=== PATIENT | female | born 1940 ===

== ENCOUNTER 2018-04-20 17:50 | Inpatient (IN) | payer OTHER, BC ==
--- NOTE | 2018-04-20 18:07 | EDPHY ---
H & P Stated Complaint: SOB/pneumonia Time Seen by Provider: 04/20/18 18:06 HPI/ROS: HPI CHIEF COMPLAINT: Worsening shortness of breath, cough HISTORY OF PRESENT ILLNESS: This is a 77-year-old female, she has a history of COPD however not on oxygen requirement, visiting her sister from out of town, last Monday she became ill and was diagnosed with the flu at urgent care, she subsequent back to urgent care today for increasing shortness of breath last night. Increasing cough. And feeling unwell. She had a chest x-ray there was diagnosed with pneumonia and then subsequently referred to the emergency room for further evaluation. She denies any chest pain, denies pleuritic pain, denies hemoptysis. Denies productive cough but does have a wet sounding cough on exam. Past Medical History: COPD not on oxygen, thyroid disease Past Surgical History: No recent surgery Social History: Lives in [place] visiting her sister here. Denies drugs alcohol tobacco. Family History: Noncontributory ROS REVIEW OF SYSTEMS: 10 Systems were reviewed and negative with the exception of the elements mentioned in the history of present illness. Exam Constitutional triage nursing summary reviewed, vital signs reviewed, awake/ alert. Nontoxic, not overtly hypoxic Eyes normal conjunctivae and sclera, EOMI, PERRLA. HENT normal inspection, atraumatic, moist mucus membranes, no epistaxis, neck supple/ no meningismus, no raccoon eyes. Respiratory bronchitic sounding cough on exam. Cardiovascular rate normal, regular rhythm, no murmur, no edema, distal pulses normal. Gastrointestinal soft, non-tender, no rebound, no guarding, normal bowel sounds, no distension, no pulsatile mass. Genitourinary no CVA tenderness. Musculoskeletal no midline vertebral tenderness, full range of motion, no calf swelling, no tenderness of extremities, no meningismus, good pulses, neurovascularly intact. Skin pink, warm, & dry, no rash, skin atraumatic. Neurologic awake, alert and oriented x 3, AAOx3, moves all 4 extremities equally, motor intact, sensory intact, CN II-XII intact, normal cerebellar, normal vision, normal speech. Psychiatric normal mood/affect. Heme/Lymph/Immune no lymphadenopathy. Differential Diagnosis: Includes but is not limited to in a particular order viral syndrome, URI, influenza, influenza subsequently complicated by bacterial pneumonia Medical Decision Making: Plan for this patient IV establishment IV fluid bolus , blood cultures, lactic acid, supplemental oxygen, EKG, hospital admission. Re-evaluation: Outside x-ray reviewed by our urgent care this shows a left lower lobe infiltrate. Patient is pending lactic acid and blood cultures. IV Rocephin and azithromycin ordered. Plan for hospital admission. I recommend hospital admission for pneumonia and recent influenza and underlying lung disease COPD. Patient agrees for admission and would prefer this as she feels unwell. Consult the hospitalist service Dr. Juarez who agrees to admit. EKG interpretation by me on record in [employer] system. Impression time of EKG 1858, sinus tach 100, bigeminy present. Source: Patient - Personal History Current Tetanus/Diphtheria Vaccine: Unsure - Medical/Surgical History Hx Asthma: No Hx Chronic Respiratory Disease: No Hx Diabetes: No Hx Cardiac Disease: No Hx Renal Disease: No Hx Cirrhosis: No Hx Alcoholism: No Other PMH: Br CA 1993, COPD, - Social History Smoking Status: Former smoker Constitutional: Initial Vital Signs Temperature (C) 36.9 C 04/20/18 17:57 Heart Rate 82 04/20/18 17:57 Respiratory Rate 18 04/20/18 17:57 Blood Pressure 126/71 H 04/20/18 17:57 O2 Sat (%) 92 04/20/18 17:57 O2 Delivery Mode Room Air O2 (L/minute) 2 Allergies/Adverse Reactions: No Known Allergies Allergy (Verified 04/20/18 18:49) Home Medications: Medication Instructions Recorded Fluticasone/Salmeter 500/50Mcg 1 puffs IH BID 04/20/18 [Advair 500/50 (*)] Gabapentin [Neurontin 100 MG (*)] 200 mg PO TID 04/20/18 Levothyroxine [Synthroid 150 mcg 150 mcg PO DAILY06 04/20/18 (*)] Lipase/Protease/Amylase [Chelsey Gaspar 1 each PO TIDMEAL 04/20/18 36,000 Units Capsule] Meloxicam 15 mg PO DAILY PRN 04/20/18 Vortioxetine Hydrobromide 10 mg PO DAILY 04/20/18 [Brintellix] Zolpidem Tartrate [Ambien 5MG (*)] 5 mg PO HS 04/20/18 Fortivo Xl 450 mg PO DAILY 04/21/18 Medical Decision Making - Data Points Laboratory Results: Laboratory Results 04/20/18 18:30 04/20/18 18:30 Microbiology Results: MICROBIOLOGY 04/20/18 18:50 Blood Blood Culture - Preliminary 04/20/18 18:30 Blood Blood Culture - Preliminary Medications Given: Acetaminophen (Tylenol) 650 mg PO Q4HRS PRN PRN Reason: Pain, Mild/Fever, Can Take PO Stop: 10/17/18 18:39 Last Admin: 04/21/18 13:52 Dose: 650 mg Hydrocodone Bitart/Acetaminophen ([place] 5/325) 1 - 2 tab PO Q4HRS PRN PRN Reason: Pain, Moderate Able to Take PO Stop: 04/30/18 18:39 Last Admin: 04/21/18 08:34 Dose: 1 tab Albuterol/Ipratropium (Duoneb) 3 ml IH QID [facility] Stop: 10/17/18 20:59 Last Admin: 04/22/18 11:57 Dose: 3 ml Enoxaparin Sodium (Lovenox) 40 mg SC DAILY [facility] Stop: 10/18/18 10:44 Last Admin: 04/22/18 09:07 Dose: 40 mg Gabapentin (Neurontin) 200 mg PO TID [facility] Stop: 10/17/18 21:59 Last Admin: 04/22/18 09:07 Dose: 200 mg Guaifenesin (Mucinex) 1,200 mg PO BID [facility] Stop: 10/18/18 10:29 Last Admin: 04/22/18 09:06 Dose: 1,200 mg Azithromycin 500 mg/ Sodium (Chloride) 255 mls @ 255 mls/hr IV DAILY [facility] PRN Reason: Protocol Stop: 05/21/18 20:29 Last Admin: 04/22/18 10:21 Dose: 255 mls Ceftriaxone Sodium/Dextrose (Rocephin 1 Gm (Premix)) 50 mls @ 100 mls/hr IV DAILY [facility] PRN Reason: Protocol Stop: 05/21/18 20:29 Last Admin: 04/22/18 09:07 Dose: 50 mls Ibuprofen (Motrin) 600 mg PO Q8H PRN PRN Reason: Pain, Mild Stop: 10/18/18 10:27 Last Admin: 04/21/18 10:56 Dose: 600 mg Levothyroxine Sodium (Synthroid) [facility] Stop: 10/18/18 05:59 Last Admin: 04/22/18 05:51 Dose: 150 mcg Miscellaneous Medication (Non-Formulary) 1 ea PO TIDMEAL [facility] Stop: 10/18/18 07:59 Last Admin: 04/22/18 09:10 Dose: 1 tab Miscellaneous Medication (Vortioxetine Hydrobromide [Trintellix]) 10 mg PO DAILY [facility] Stop: 10/18/18 08:59 Last Admin: 04/22/18 09:09 Dose: 10 mg Miscellaneous Medication (Fortivo Xl) 450 mg PO DAILY [facility] Stop: 10/19/18 08:59 Last Admin: 04/22/18 09:08 Dose: 450 mg Ondansetron HCl (Zofran Odt) 4 mg PO Q4HRS PRN PRN Reason: Nausea/Vomiting, Use 1st Stop: 10/17/18 18:39 Last Admin: 04/22/18 10:39 Dose: 4 mg Fluticasone/Salmeterol (Advair) 1 puffs IH BID [facility] Stop: 10/17/18 20:59 Last Admin: 04/22/18 09:09 Dose: 1 puffs Senna/Docusate Sodium (Senokot-S) 1 - 2 tab PO BID [facility] PRN Reason: Protocol Stop: 10/17/18 20:59 Last Admin: 04/22/18 09:09 Dose: Not Given Zolpidem Tartrate (Ambien) 5 mg PO HS [facility] Stop: 10/17/18 20:59 Last Admin: 04/21/18 22:52 Dose: 5 mg Discontinued Medications Bupropion HCl (Wellbutrin Xl) 450 mg PO DAILY [facility] Stop: 10/18/18 08:59 Last Admin: 04/21/18 08:21 Dose: 450 mg Sodium Chloride (Ns) 1,000 mls @ 0 mls/hr IV EDNOW ONE; Wide Open PRN Reason: Protocol Stop: 04/20/18 18:12 Last Admin: 04/20/18 18:50 Dose: 1,000 mls Azithromycin 500 mg/ Sodium (Chloride) 255 mls @ 255 mls/hr IV EDNOW ONE PRN Reason: Protocol Stop: 04/20/18 19:24 Last Admin: 04/20/18 19:25 Dose: 255 mls Ceftriaxone Sodium 2 gm/ (Sodium Chloride) 50 mls @ 100 mls/hr IV EDNOW ONE PRN Reason: Protocol Stop: 04/20/18 18:54 Last Admin: 04/20/18 19:01 Dose: 50 mls Sodium Chloride (Ns) 1,000 mls @ 0 mls/hr IV ONCE ONE PRN Reason: Wide Open Stop: 04/20/18 23:51 Last Admin: 04/21/18 00:13 Dose: 1,000 mls Oseltamivir Phosphate (Tamiflu) 75 mg PO ONCE ONE Stop: 04/21/18 10:24 Last Admin: 04/21/18 10:51 Dose: 75 mg Point of Care Test Results: Chemistry 04/20/18 18:39 POC Troponin I 0.00 ng/mL ng/mL (0.00-0.08) Departure - Departure Disposition: [facility] Inpatient Acute Clinical Impression: Pneumonia Qualifiers: Pneumonia type: due to unspecified organism Laterality: left Lung location: lower lobe of lung Qualified Code(s): J18.1 - Lobar pneumonia, unspecified organism Condition: Fair
[2018-04-20] MEDS ORDERED: NS 1,000 ML IV ONE ×2 (18:11→23:50)
[2018-04-20] MEDS ORDERED: AZITHROMYCIN IV 500 MG in NS 250 ML IV ONE (18:25)
[2018-04-20] MEDS ORDERED: ALBUTEROL 3 ML DEYVIAL IH PRN (18:40)
[2018-04-20] MEDS ORDERED: oxyCODONE IR 5 MG TAB PO PRN (18:40)
[2018-04-20] MEDS ORDERED: ONDANSETRON 4 MG/2 ML VIAL IVP PRN (18:40)
[2018-04-20] MEDS ORDERED: HYDROmorphONE/DILAUDID 1 MG/ML INJ IVP PRN (18:40)
[2018-04-20] MEDS ORDERED: PROMETHAZINE HCL 25 MG/ML INJ IVP PRN (18:40)
[2018-04-20 18:46] LABS: PLATELET COUNT 331 10^3/uL (150-400)
[2018-04-20 19:07] LABS: INR 1.17 (0.83-1.16); PROTIME(PATIENT) 15.1 SEC (12.0-15.0)
[2018-04-20] MEDS ORDERED: POLYETHYLENE GLYCOL 3350 17 GM PKT PO PRN (20:43)
[2018-04-20] MEDS ORDERED: MAGNESIUM HYDROXIDE 30 ML UDCUP PO PRN (20:43)
[2018-04-20] MEDS ORDERED: BISACODYL 10 MG SUPP PR PRN (20:43)
[2018-04-20] MEDS ORDERED: LACTULOSE 20 GM/30 ML UDCUP PO PRN (20:43)
--- NOTE | 2018-04-20 20:50 | PDGENHP ---
History and Physical - Chief Complaint shorntess of breath - History of Present Illness 77 yo F with PMH of COPD, breast cancer and hx of partial lobectomy for radiation associated changes of the lung presenting with sob, cough and generalized malaise. Patient is currently visiting her sister in [place] from [place], has been here approximately one week. Shortly after arrival she began feeling ill with fever, chills and cough and was diagnosed with influenza at urgent care. She reportedly was initially getting better from that but last night developed severe shortness of breath to where she felt she was suffocating. She has had associated cough that is non productive as well as chills and malaise but no fevers. She returned to urgent care where she was found to have a left lower lobe infiltrate consistent with pneumonia and was sent to ER for further evaluation. At the time of my evaluation patient feels much better on supplemental o2, she has no pain, she has mild dry cough and no other acute complaints. History Information - Allergies/Home Medication List Allergies/Adverse Reactions: No Known Allergies Allergy (Verified 04/20/18 18:49) Home Medications: Bupropion HCl [Forfivo Xl] 450 mg PO DAILY 04/20/18 [Last Taken 04/20/18] Fluticasone/Salmeter 500/50Mcg [Advair 500/50 (*)] 1 puffs IH BID 04/20/18 [ Last Taken 04/20/18] Gabapentin [Neurontin 100 MG (*)] 200 mg PO TID 04/20/18 [Last Taken 04/19/18] Levothyroxine [Synthroid 150 mcg (*)] 150 mcg PO DAILY06 04/20/18 [Last Taken ] Lipase/Protease/Amylase [Chelsey Gaspar 36,000 Units Capsule] 1 each PO TIDMEAL [Last Taken Unknown] Meloxicam 15 mg PO DAILY PRN 04/20/18 [Last Taken 04/19/18] Vortioxetine Hydrobromide [Brintellix] 10 mg PO DAILY 04/20/18 [Last Taken 04/20] Zolpidem Tartrate [Ambien 5MG (*)] 5 mg PO HS 04/20/18 [Last Taken 04/19/18] I have personally reviewed and updated: family history, medical history, social history, surgical history - Past Medical History cancer (breast), COPD, psychiatric history (depression) Additional medical history: hypothyroid - Surgical History Reports: cancer surgery Additional surgical history: RUL lobectomy for what turned out to be radiation changes from breast cancer treatment - Family History Positive for: non-pertinent - Social History Smoking Status: Former smoker Alcohol Use: Occasionally Drug Use: None Additional social history: resides in [place], visiting her sister Review of Systems Review of Systems: ROS: 10pt was reviewed & negative except for what was stated in HPI & below Physical Exam Physical Exam: Temp Pulse Resp BP Pulse Ox 37.0 C 71 18 120/50 L 97 04/20/18 20:00 04/20/18 20:00 04/20/18 20:00 04/20/18 20:00 04/20/18 20:10 O2 (L/minute) 1 Constitutional: no apparent distress, appears nourished Eyes: PERRL, anicteric sclera Ears, Nose, Mouth, Throat: moist mucous membranes, hearing normal Cardiovascular: regular rate and rhythym, no murmur, rub, or gallop, No edema Respiratory: no respiratory distress, rhonchi (LLL) Gastrointestinal: normoactive bowel sounds, soft, non-tender abdomen Genitourinary: no bladder tenderness Skin: warm, normal color Musculoskeletal: full muscle strength Neurologic: AAOx3 Psychiatric: interacting appropriately, not anxious, not encephalopathic Lab Data & Imaging Review 04/20/18 18:30 04/20/18 18:30 WBC 8.72 10^3/uL (3.80-9.50) 04/20/18 18:30 RBC 4.21 10^6/uL (4.18-5.33) 04/20/18 18:30 Hgb 13.0 g/dL (12.6-16.3) 04/20/18 18:30 Hct 39.4 % (38.0-47.0) 04/20/18 18:30 MCV 93.6 fL (81.5-99.8) 04/20/18 18:30 MCH 30.9 pg (27.9-34.1) 04/20/18 18:30 MCHC 33.0 g/dL (32.4-36.7) 04/20/18 18:30 RDW 14.6 % (11.5-15.2) 04/20/18 18:30 Plt Count 331 10^3/uL (150-400) 04/20/18 18: MPV 8.6 fL (8.7-11.7) L 04/20/18 18:30 Neut % (Auto) 70.5 % (39.3-74.2) 04/20/18 18:30 Lymph % (Auto) 16.2 % (15.0-45.0) 04/20/18 18: [place] % (Auto) 9.5 % (4.5-13.0) 04/20/18 18:30 Eos % (Auto) 2.3 % (0.6-7.6) 04/20/18: Baso % (Auto) 0.5 % (0.3-1.7) 04/20/18 18: Nucleat RBC Rel Count 0.0 % (0.0-0.2) 04/20/18: Absolute Neuts (auto) 6.15 10^3/uL (1.70-6.50) 04/20/18 18:30 Absolute Lymphs (auto) 1.41 10^3/uL (1.00-3.00) 04/20/18 18: Absolute Monos (auto) 0.83 10^3/uL (0.30-0.80) H 04/20/18 18:30 Absolute Eos (auto) 0.20 10^3/uL (0.03-0.40) 04/20/18 18: Absolute Basos (auto) 0.04 10^3/uL (0.02-0.10) 04/20/18 18: Absolute Nucleated RBC 0.00 10^3/uL (0-0.01) 04/20/18 18: Immature Gran % 1.0 % (0.0-1.1) 04/20/18 18: Immature Gran # 0.09 10^3/uL (0.00-0.10) 04/20/18 18: PT 15.1 SEC (12.0-15.0) H 04/20/18 18:11 INR 1.17 (0.83-1.16) H 04/20/18 18:11 APTT 30.7 SEC (23.0-38.0) 04/20/18 18:11 VBG Lactic Acid 1.3 mmol/L (0.7-2.1) 04/20/18 18:30 Sodium 136 mEq/L (135-145) 04/20/18 18:30 Potassium 4.6 mEq/L (3.5-5.2) 04/20/18 18:30 Chloride 104 mEq/L (97-110) 04/20/18 18:30 Carbon Dioxide 26 mEq/l (22-31) 04/20/18 18:30 Anion Gap 6 mEq/L (6-14) 04/20/18 18:30 BUN 15 mg/dL (7-23) 04/20/18 18:30 Creatinine 0.6 mg/dL (0.6-1.0) 04/20/18 18:30 Estimated GFR > 60 04/20/18 18:30 Glucose 78 mg/dL (70-100) 04/20/18 18:30 Calcium 9.3 mg/dL (8.5-10.4) 04/20/18 18:30 POC Troponin I 0.00 ng/mL (0.00-0.08) 04/20/18 18:39 NT-Pro-B Natriuret Pep 271 pg/mL (0-450) 04/20/18 18:30 Visualized and Interpreted Chest x-ray results: Yes Chest X-Ray results: infiltrate (LLL) Visualized and Interpreted EKG results: Yes EKG additional interpertation: sinus tachycardia, multiple VPC Assessment & Plan Assessment: 77 yo F with hx of COPD and breast cancer as well as recent dx of influenza admitted with LLL PNA # LLL PNA: in the setting of preceding viral infection with influenza, no risk factors for nosocomial infection, cultures ordered and pending, started on ctx/ azithro for now. Non toxic appearing, not meeting SIRS criteria. Suspect if she continues to improve clinically could dc in am on levofloxacin. # copd: without e/o acute exacerbation though given recent influenza and now pna high risk for that, will provide prn nebs as needed # hypoxia: patient with significant sob but o2 sats have been consistently greater than 90% on RA, will continue supplemental o2 for comfort, IS and ambulation, will trial off of o2 in the am # influenza: diagnosed one week ago nearly and likely precipitated her infection as above, s/p tamiflu, patient did receive flu vaccine this year # hx of breast cancer: remote without e/o recurrence, has had partial lobectomy for radiation associated changes # depression: continue her op meds, appears euthymic currently # observation status Patient new to my care. Old records reviewed and summarized as above. Care plan reviewed with ER doctor, further hx obtained from patients sister present at bedside.
[2018-04-20] MEDS: GABAPENTIN 100 MG CAP PO SCH (21:57)
[2018-04-20] MEDS: SENNOSIDES/DOCUSATE SODIUM TAB PO SCH (21:57)
[2018-04-20] MEDS: ZOLPIDEM TARTRATE 5 MG TAB PO SCH ×2 (21:57→22:26)
[2018-04-20] MEDS: IPRATROPIUM/ALBUTEROL 3 ML DEYVIAL IH SCH (22:23)
[2018-04-20] MEDS: FLUTICASONE/SALMETER 500/50MCG DISKUS IH SCH (22:25)
[2018-04-21] MEDS: HYDROCODONE/APAP 5/325 TAB PO PRN ×2 (03:02→08:34)
[2018-04-21] MEDS: IPRATROPIUM/ALBUTEROL 3 ML DEYVIAL IH SCH ×4 (05:04→21:35)
[2018-04-21] MEDS: LEVOTHYROXINE 150 MCG TAB PO SCH (05:15)
[2018-04-21] MEDS: CREON PO SCH ×3 (07:35→18:54)
[2018-04-21] MEDS: SENNOSIDES/DOCUSATE SODIUM TAB PO SCH ×2 (08:21→21:53)
[2018-04-21] MEDS: GABAPENTIN 100 MG CAP PO SCH ×3 (08:21→21:53)
[2018-04-21] MEDS ORDERED: buPROPion XL 150 MG TAB PO SCH (09:00)
[2018-04-21] MEDS: FLUTICASONE/SALMETER 500/50MCG DISKUS IH SCH ×2 (09:57→21:36)
[2018-04-21] MEDS: Vortioxetine Hydrobromide [Trintellix] 10 MG PO SCH (09:59)
[2018-04-21] MEDS ORDERED: OSELTAMIVIR PHOSPHATE 75 MG CAP PO ONE (10:23)
[2018-04-21] MEDS ORDERED: BENZONATATE 100 MG CAP PO PRN (10:29)
--- NOTE | 2018-04-21 10:40 | HOSPPROG ---
Hospitalist Progress Note Assessment/Plan: 77 yo F with hx of COPD and breast cancer as well as recent dx of influenza admitted with LLL PNA # LLL PNA: in the setting of influenza, no SIRS -cont ceftriaxone/azithromycin # copd: without e/o acute exacerbation -cont nebs # hypoxia: on room air this am, but still quite SOB # influenza: will give final dose of tamiflu this am # hx of breast cancer: remote without e/o recurrence, has had partial lobectomy for radiation associated changes # depression: continue her op meds, appears euthymic currently # dvt pplx: Lovenox # dispo - change to inpt for ongoing SOB, cough and deconditioning, needs acute PT/OT and ongoing supportive care Subjective: Pt still very SOB and coughing a lot. Worried she is not well enough to climb 19 stairs to get into her place. No fevers overnight. Required 2 LPM O2. Denies CP. Objective: Vital Signs Temp Pulse Resp BP Pulse Ox 36.8 C 73 14 110/62 96 04/21/18 08:00 04/21/18 08:00 04/21/18 08:00 04/21/18 08:00 04/21/18 08:00 Laboratory Results 04/20/18 18:30 04/20/18 18:30 04/20/18 04/21/18 04/22/18 05:59 05:59 05:59 Intake Total 3450 Balance 3450 PT 15.1 SEC (12.0-15.0) H 04/20/18 18:11 INR 1.17 (0.83-1.16) H 04/20/18 18:11 - Physical Exam Constitutional: no apparent distress Eyes: PERRL Ears, Nose, Mouth, Throat: moist mucous membranes Cardiovascular: regular rate and rhythym Respiratory: no respiratory distress, inspiratory crackles Gastrointestinal: normoactive bowel sounds, soft, non-tender abdomen Skin: warm Musculoskeletal: full muscle strength Neurologic: AAOx3 Psychiatric: interacting appropriately ICD10 Worksheet Patient Problems: Problems Problem Status Onset Pneumonia Acute
[2018-04-21] MEDS: guaiFENesin 600 MG TAB.ER PO SCH ×2 (10:50→21:53)
[2018-04-21] MEDS: ENOXAPARIN 40 MG/0.4 ML SYR SC SCH (10:51)
[2018-04-21] MEDS: IBUPROFEN 600 MG TAB PO PRN (10:56)
[2018-04-21] MEDS: ACETAMINOPHEN 325 MG TAB PO PRN (13:52)
--- NOTE | 2018-04-21 14:35 | ASMTCMCOM ---
CM Note CM Note Notes: Chart reviewed and met with Anju. Pt is a 77yr old adm with SOB & on oxygen. She reports feeling better, but weak. She plans on returning to her Sisters in [place] but her Sister's home has 19 steep stairs. PT to see Pt. Pt would like to fly home to [place] on Mon and will need an Airlines excuse form at discharge. CM available for needs. Plan: TBD Date Signed: 04/21/2018 02:34 PM Electronically Signed By:Chloe Whitney RN
--- NOTE | 2018-04-21 14:44 | PDMN ---
Medical Necessity Medical necessity: [facility] M282 Pneumonia, A-2 days, 77 yo w/ dx of PNA in setting of recent dx influenza. Initially OBS for workup tx but pt requires additional MN for ongoing IV antibx needs, cont nebs, pt still quite SOB today. PT/OT ordered. BC still pending. Hx COPD, breast ca, depression, hypothyroid, RUL lobectomy
[2018-04-21] MEDS: AZITHROMYCIN IV 500 MG in NS 250 ML IV SCH (21:50)
[2018-04-21] MEDS: ZOLPIDEM TARTRATE 5 MG TAB PO SCH (22:52)
[2018-04-22] MEDS: LEVOTHYROXINE 150 MCG TAB PO SCH (05:51)
[2018-04-22] MEDS: IPRATROPIUM/ALBUTEROL 3 ML DEYVIAL IH SCH ×3 (06:23→16:01)
[2018-04-22] MEDS ORDERED: buPROPion XL 150 MG TAB PO SCH (09:00)
[2018-04-22] MEDS: guaiFENesin 600 MG TAB.ER PO SCH ×2 (09:06→21:54)
[2018-04-22] MEDS: GABAPENTIN 100 MG CAP PO SCH ×3 (09:07→21:54)
[2018-04-22] MEDS: ENOXAPARIN 40 MG/0.4 ML SYR SC SCH (09:07)
[2018-04-22] MEDS: [UNRECOGNIZED DRUG - OTHER] PO SCH (09:08)
[2018-04-22] MEDS: SENNOSIDES/DOCUSATE SODIUM TAB PO SCH ×2 (09:09→21:55)
[2018-04-22] MEDS: FLUTICASONE/SALMETER 500/50MCG DISKUS IH SCH ×2 (09:09→21:36)
[2018-04-22] MEDS: Vortioxetine Hydrobromide [Trintellix] 10 MG PO SCH (09:09)
[2018-04-22] MEDS: CREON PO SCH ×5 (09:10→18:05)
[2018-04-22] MEDS: AZITHROMYCIN IV 500 MG in NS 250 ML IV SCH (10:21)
[2018-04-22] MEDS: ONDANSETRON DISINTEGRATING 4 MG TAB PO PRN (10:39)
--- NOTE | 2018-04-22 12:34 | HOSPPROG ---
Hospitalist Progress Note Assessment/Plan: 77 yo F with hx of COPD and breast cancer as well as recent dx of influenza admitted with LLL PNA # LLL PNA: in the setting of influenza, no SIRS -cont ceftriaxone/azithromycin # copd: without e/o acute exacerbation -cont nebs # hypoxia: due to PNA, requiring 1 LPM O2 -wean O2 as able # influenza: completed course of tamiflu # hx of breast cancer: remote without e/o recurrence, has had partial lobectomy for radiation associated changes # depression: continue her op meds, appears euthymic currently # dvt pplx: Lovenox # dispo - cont inpt for ongoing O2 requirement, needs acute PT/OT, possible dc in am Subjective: Pt feels a little better today. Was able to do 8 steps, needs to do 19 steps to go to her sister's house. Coughing a bit still. Denies CP or SOB. no fevers. Eating well. Energy improved. Still on O2. Objective: Vital Signs Temp Pulse Resp BP Pulse Ox 36.8 C 85 22 H 95/59 L 92 04/22/18 12:00 04/22/18 12:00 04/22/18 12:00 04/22/18 12:00 04/22/18 12:00 04/21/18 04/22/18 04/23/18 05:59 05:59 05:59 Intake Total 300 Output Total 600 300 Balance -300 -300 PT 15.1 SEC (12.0-15.0) H 04/20/18 18:11 INR 1.17 (0.83-1.16) H 04/20/18 18:11 - Physical Exam Constitutional: no apparent distress Eyes: PERRL Ears, Nose, Mouth, Throat: moist mucous membranes Cardiovascular: regular rate and rhythym Respiratory: no respiratory distress, inspiratory crackles Gastrointestinal: normoactive bowel sounds, soft, non-tender abdomen Skin: warm Musculoskeletal: full muscle strength Neurologic: AAOx3 Psychiatric: interacting appropriately ICD10 Worksheet Patient Problems: Problems Problem Status Onset Pneumonia Acute
[2018-04-22] MEDS: ACETAMINOPHEN 325 MG TAB PO PRN ×2 (13:53→18:07)
[2018-04-22] MEDS: IBUPROFEN 600 MG TAB PO PRN (15:53)
[2018-04-22] MEDS ORDERED: IPRATROPIUM/ALBUTEROL 3 ML DEYVIAL IH PRN (16:30)
--- NOTE | 2018-04-22 16:43 | ASMTCMCOM ---
CM Note CM Note Notes: Apparently, patient's sister has been advocating for her to take a [employer] flight to [place] where she would then be directly admitted to the hospital there. Her sister has been working on this behind the scenes and provided Dr Martines with a number to call. Per Dr Martines, Marissa would like to wait and reassess the case tomorrow. Patient is nearly medically stable so it doesn't seem that this flight, especially if it were to require the presence of a critical care staff, is warranted. Case Management will assist in whatever way we can. Current CM Discharge plan: TBD Date Signed: 04/22/2018 04:42 PM Electronically Signed By:Carlie Ceron RN
[2018-04-22] MEDS: ZOLPIDEM TARTRATE 5 MG TAB PO SCH (21:55)
[2018-04-23] MEDS: LEVOTHYROXINE 150 MCG TAB PO SCH (05:07)
--- NOTE | 2018-04-23 08:35 | PDIAF ---
- Diagnosis Diagnosis: Influenza, CAP Code Status: Full Code - Medication Management Discharge Medications: electronically signed and located in the Home Medication List. PICC Care - Routine: N/A - Orders Isolation Type: Droplet Isolation Oxygen: 2 LPM Diet Recommendation: no restrictions on diet - Follow Up Care Current Providers and Referrals: NONE *PRIMARY CARE P,. [Primary Care Provider] - As per Instructions
[2018-04-23] MEDS: FLUTICASONE/SALMETER 500/50MCG DISKUS IH SCH ×2 (08:43→21:00)
[2018-04-23] MEDS: GABAPENTIN 100 MG CAP PO SCH ×3 (09:17→23:38)
[2018-04-23] MEDS: guaiFENesin 600 MG TAB.ER PO SCH ×2 (09:17→20:09)
[2018-04-23] MEDS: ENOXAPARIN 40 MG/0.4 ML SYR SC SCH (09:17)
[2018-04-23] MEDS: [UNRECOGNIZED DRUG - OTHER] PO SCH (09:21)
[2018-04-23] MEDS: Vortioxetine Hydrobromide [Trintellix] 10 MG PO SCH (09:22)
[2018-04-23] MEDS: CREON PO SCH ×3 (10:19→19:32)
[2018-04-23] MEDS: AZITHROMYCIN IV 500 MG in NS 250 ML IV SCH (10:20)
[2018-04-23] MEDS: IBUPROFEN 600 MG TAB PO PRN (10:27)
[2018-04-23] MEDS: ONDANSETRON DISINTEGRATING 4 MG TAB PO PRN (10:30)
--- NOTE | 2018-04-23 13:12 | HOSPPROG ---
Hospitalist Progress Note Assessment/Plan: 77 yo F with hx of COPD and breast cancer as well as recent dx of influenza admitted with LLL PNA # LLL PNA: in the setting of influenza, no SIRS -cont ceftriaxone/azithromycin # copd: without e/o acute exacerbation -cont nebs, atbx # hypoxia: due to PNA, requiring 2 LPM O2. -wean O2 as able # influenza: completed course of tamiflu # hx of breast cancer: remote without e/o recurrence, has had partial lobectomy for radiation associated changes # depression: continue her op meds # dvt pplx: Lovenox # dispo - cont inpt for ongoing hypoxemia, pt planning to transfer back to hospital in via her travel insurance, [employer]. Her car supervisor physician in is working on getting an accepting hospital. [facility] does not have a bed available today. She doesn't feel safe d/c'ing to sister's house here with home O2 due to 20 steep stairs. In addition, sister is not supportive of this. [facility] transfer line at pt and her sister's request. [facility] noted no medical necessity for transfer and also said they did not have a bed available. They are looking at other [facility] hospitals. Subjective: Pt still coughing, a bit SOB. Denies CP. Feels a little better. No fevers. She is now more adamant about transferring back to with her [employer] insurance. Objective: Vital Signs Temp Pulse Resp BP Pulse Ox 36.9 C 76 18 101/56 L 94 04/23/18 11:55 04/23/18 11:55 04/23/18 11:55 04/23/18 11:55 04/23/18 11:55 04/22/18 04/23/18 04/24/18 05:59 05:59 05:59 Intake Total 300 500 Output Total 600 300 Balance -300 200 PT 15.1 SEC (12.0-15.0) H 04/20/18 18:11 INR 1.17 (0.83-1.16) H 04/20/18 18:11 - Physical Exam Constitutional: no apparent distress Eyes: PERRL Ears, Nose, Mouth, Throat: moist mucous membranes Cardiovascular: regular rate and rhythym Respiratory: no respiratory distress, inspiratory crackles Gastrointestinal: normoactive bowel sounds, soft, non-tender abdomen Skin: warm Musculoskeletal: full muscle strength Neurologic: AAOx3 ICD10 Worksheet Patient Problems: Problems Problem Status Onset Pneumonia Acute chronic disease mgmt/transitional care Acute
--- NOTE | 2018-04-23 14:45 | ASMTCMCOM ---
CM Note CM Note Notes: Pts case discussed w/ Dr. Martines. Dr. Martines has spoken to [facility] and they do not have a bed available for pt today. CM spoke to [facility] from pts PCP office. Diandra has called [facility], [facility], and [facility] and none of them have a bed available. Pts sister is requesting for a med flight transport to a hospital in [place]. CM to follow. Plan: TBD Date Signed: 04/23/2018 02:44 PM Electronically Signed By:CORNELIUS Saxena
[2018-04-23] MEDS: SENNOSIDES/DOCUSATE SODIUM TAB PO SCH ×2 (14:51→20:09)
--- NOTE | 2018-04-23 15:41 | ASMTCMCOM ---
CM Note CM Note Notes: CM spoke to pts sister. She is requesting that CM send medical records to [facility]. CM spoke to Gay (P#: [phone], F#: [phone]). Their MD will review the records then give Dr. Martines a call. Dr. Martines has been informed about this. CM also called [facility] and sent over records for a transfer. CM spoke to Coy (P#: [phone], F#: [phone]). CM to follow. Date Signed: 04/23/2018 03:40 PM Electronically Signed By:CORNELIUS Saxena
[2018-04-23] MEDS: ZOLPIDEM TARTRATE 5 MG TAB PO SCH (23:37)
[2018-04-24] MEDS: LEVOTHYROXINE 150 MCG TAB PO SCH (05:51)
[2018-04-24] MEDS: CREON PO SCH ×3 (07:13→18:23)
--- NOTE | 2018-04-24 08:28 | HOSPPROG ---
Hospitalist Progress Note Assessment/Plan: 77 yo F with hx of COPD and breast cancer as well as recent dx of influenza admitted with LLL PNA. First encounter, chart reviewed. # LLL PNA: in the setting of influenza, no SIRS -cont ceftriaxone/azithromycin -wbc stable, afebrile, blood cx shows no growth # copd: without e/o acute exacerbation -cont nebs, atbx # hypoxia: due to PNA -room air she is at 90 % # influenza -was treated w Tamiflu # hx of breast cancer: remote without e/o recurrence, has had partial lobectomy for radiation associated changes # depression: continue her op meds # dvt pplx: Lovenox # dispo - pt planning to transfer back to hospital in via her travel insurance, [employer]. Her residential sales rep physician in is working on getting an accepting facility. Yesterday, [facility] did not have a bed available. She doesn't feel safe d/c'ing to sister's house here with needing to ambulate up 20 steep stairs. In addition, sister is not supportive of this. The physician yesterday spoke to [facility] and [facility] transfer line at pt and her sister's request. [facility] noted no medical necessity for transfer and also said they did not have a bed available. I explained to the patient and her sister, she doesn't require a Hospital admission but may need a SNF or some type of step down facility for f/ u care. Subjective: Ameena said she didn't get enough sleep last night. Objective: Vital Signs Temp Pulse Resp BP Pulse Ox 36.8 C 78 16 130/67 H 94 04/24/18 07:21 04/24/18 07:21 04/24/18 07:21 04/24/18 07:21 04/24/18 07:21 04/23/18 04/24/18 04/25/18 05:59 05:59 05:59 Intake Total 500 1270 Output Total 300 Balance 200 1270 PT 15.1 SEC (12.0-15.0) H 04/20/18 18:11 INR 1.17 (0.83-1.16) H 04/20/18 18:11 - Physical Exam Constitutional: no apparent distress, appears nourished, not in pain Eyes: PERRL Ears, Nose, Mouth, Throat: hearing normal Cardiovascular: regular rate and rhythym Respiratory: no respiratory distress, clear to auscultation Skin: warm Neurologic: AAOx3 Psychiatric: interacting appropriately ICD10 Worksheet Patient Problems: Problems Problem Status Onset Pneumonia Acute chronic disease mgmt/transitional care Acute
[2018-04-24] MEDS: guaiFENesin 600 MG TAB.ER PO SCH ×2 (09:43→22:38)
[2018-04-24] MEDS: [UNRECOGNIZED DRUG - OTHER] PO SCH (09:45)
[2018-04-24] MEDS: GABAPENTIN 100 MG CAP PO SCH ×3 (09:45→22:39)
[2018-04-24] MEDS: Vortioxetine Hydrobromide [Trintellix] 10 MG PO SCH (09:46)
[2018-04-24] MEDS: ENOXAPARIN 40 MG/0.4 ML SYR SC SCH (09:46)
[2018-04-24] MEDS: SENNOSIDES/DOCUSATE SODIUM TAB PO SCH ×2 (10:34→22:41)
[2018-04-24] MEDS: AZITHROMYCIN IV 500 MG in NS 250 ML IV SCH (10:45)
[2018-04-24] MEDS: ONDANSETRON DISINTEGRATING 4 MG TAB PO PRN (10:51)
[2018-04-24] MEDS: FLUTICASONE/SALMETER 500/50MCG DISKUS IH SCH ×2 (11:37→21:37)
--- NOTE | 2018-04-24 12:16 | PDHOMEO2F ---
Home Oxygen Face to Face Home Orders: I certify that a physician or a nurse practitioner or physician's recovery assistant has had a [id number] encounter with this patient on the date of this order due to the diagnosis listed, which relates to the primary reason the patient requires home oxygen. Alternative treatments have been tried, or considered, and deemed ineffective. It is anticipated that supplemental oxygen will result in improvement with treatment. Home oxygen qualifying diagnosis: left lower lobe pneumonia SpO2 on room air (%): 85% Frequency of home oxygen needed: continuous Home oxygen liters per minute: 2 Home oxygen delivery device: nasal cannula Concentrator: Yes E-tanks for mobility and back up: Yes If ordering portable O2, is the patient mobile in the home?: Yes I certify that, based on these findings, the home oxygen is medically necessary for this patient for the following length of time. Length of time home oxygen needed: 99 years
--- NOTE | 2018-04-24 15:57 | ASMTCMCOM ---
CM Note CM Note Notes: Pts case discussed w/ Angelica Tinajero NP. [facility] has refused pt for inpatient transfer. Pt will most likely d/c tomorrow and get on a commercial flight home back to [place]. CM spoke to RT and pt is responsible for setting up her own o2. Pt has a written letter by Angelica stating that she requires o2 during flight. Pt should not have any d/c needs. PT has cleared pt. CM spoke to pts PCP Dr. Georgia Rubio (P#: [phone]) and she states that she is able to set up HC services if that is what she needs when she is back in [place]. CM available for needs. Plan: Independent Date Signed: 04/24/2018 03:56 PM Electronically Signed By:CORNELIUS Saxena
[2018-04-24] MEDS: ZOLPIDEM TARTRATE 5 MG TAB PO SCH (22:38)
[2018-04-25] MEDS: LEVOTHYROXINE 150 MCG TAB PO SCH (06:37)
--- NOTE | 2018-04-25 08:13 | HOSPPROG ---
Hospitalist Progress Note Assessment/Plan: 77 yo F with hx of COPD and breast cancer as well as recent dx of influenza admitted with LLL PNA. # LLL PNA: in the setting of influenza, no SIRS -cont ceftriaxone/azithromycin -wbc stable, afebrile, blood cx shows no growth # copd: without e/o acute exacerbation -cont nebs, atbx # hypoxia: due to PNA -room air she is at 91-92 % (at rest) # influenza -was treated w Tamiflu # hx of breast cancer: remote without e/o recurrence, has had partial lobectomy for radiation associated changes # depression: continue her op meds # dvt pplx: Lovenox # dispo - dc today, plan is for transportation to [facility], oxygen has been arranged , forms filled out for O2 for plane use. 2 more days of abx. Subjective: Anju is frustrated by lack of sleep at night here in the hospital , feels much improved as far as pna symptoms. Objective: Vital Signs Temp Pulse Resp BP Pulse Ox 36.7 C 76 16 116/63 96 04/25/18 04:00 04/25/18 04:00 04/25/18 04:00 04/25/18 04:00 04/25/18 04:00 04/24/18 04/25/18 04/26/18 05:59 05:59 05:59 Intake Total 1270 450 Output Total 400 Balance 1270 50 PT 15.1 SEC (12.0-15.0) H 04/20/18 18:11 INR 1.17 (0.83-1.16) H 04/20/18 18:11 - Physical Exam Constitutional: no apparent distress Eyes: PERRL Ears, Nose, Mouth, Throat: hearing normal Cardiovascular: regular rate and rhythym Respiratory: no respiratory distress, clear to auscultation, other (loose cough) Skin: warm Musculoskeletal: generalized weakness Neurologic: AAOx3 Psychiatric: interacting appropriately ICD10 Worksheet Patient Problems: Problems Problem Status Onset Pneumonia Acute chronic disease mgmt/transitional care Acute
[2018-04-25] MEDS: AZITHROMYCIN IV 500 MG in NS 250 ML IV SCH (08:24)
[2018-04-25] MEDS: GABAPENTIN 100 MG CAP PO SCH (08:31)
[2018-04-25] MEDS: SENNOSIDES/DOCUSATE SODIUM TAB PO SCH (08:32)
[2018-04-25] MEDS: guaiFENesin 600 MG TAB.ER PO SCH (08:32)
[2018-04-25] MEDS: CREON PO SCH (08:33)
[2018-04-25] MEDS: [UNRECOGNIZED DRUG - OTHER] PO SCH (08:34)
[2018-04-25] MEDS: ENOXAPARIN 40 MG/0.4 ML SYR SC SCH (08:35)
[2018-04-25] MEDS: Vortioxetine Hydrobromide [Trintellix] 10 MG PO SCH (08:36)
[2018-04-25 08:43] VITALS: BP 122/77
[2018-04-25] MEDS: FLUTICASONE/SALMETER 500/50MCG DISKUS IH SCH (09:04)
[2018-04-25] MEDS: ACETAMINOPHEN 325 MG TAB PO PRN (11:57)
--- NOTE | 2018-04-25 12:32 | GDS ---
[f rep st] DISCHARGE SUMMARY DISCHARGE DIAGNOSES: 1. Left lower lobe pneumonia in the setting of recent influenza. 2. Chronic obstructive pulmonary disease. 3. Hypoxemia. 4. Influenza. 5. History of breast cancer. 6. Depression. HISTORY OF PRESENT ILLNESS: Briefly, the patient is a 77-year-old woman who is here visiting her sis ter from the [facility]. She had been here approximately 1 week when she was admitted. She started feeling ill with fever and chills and was diagnosed with influenza at urgent care. She was g etting better, but developed severe shortness of breath to where she felt she was suffocating, and sh e had an associated cough. She was admitted, and her chest x-ray noted that she had an infiltrate in her left lower lobe area. She was treated with IV antibiotics. Blood cultures were checked, which showed no growth. She is markedly improved today. She is on approximately 1-2 L of oxygen with acti vity. She will be discharged home. The plan is for her to fly back today to the [facility]. I have been in contact with her primary care provider who will be following up with the patient whe n she returns. HOSPITAL COURSE PER PROBLEM: 1. Left lower lobe pneumonia. This is in the setting of recent influenza. She did not have any SIR S. She was treated with ceftriaxone and azithromycin. White blood cell count is stable. She has be en afebrile. 2. COPD. She does not appear to have any etiology of an acute exacerbation. She has been on nebs. 3. Hypoxia due to pneumonia and possible COPD. On room air at rest, she is 91% to 92%. With activi ty, she drops in the upper 80s. She will have oxygen with her during her transport and on the plane. 4. Influenza. Recent treatment with Tamiflu. 5. History of breast cancer. She says remote without any recurrence. She had a partial lobectomy. 6. Depression. Continue her home medications. DISCHARGE CONDITION: Stable. Blood pressure is 122/77, heart rate 75, respiratory rate of 18, O2 sa ts on room air are 90%, temperature 36.7 Celsius. MEDICATIONS AT DISCHARGE: Please see the EMR. DISCHARGE INSTRUCTIONS: 1. Start the Levaquin tomorrow, to be aware that this can affect her Achilles tendon. If she has pa in, to stop immediately. 2. If she develops frequent diarrhea, greater than 3 watery stools, to see her primary care provider immediately. 3. Get a followup chest x-ray to be sure she has resolution of her pneumonia. Greater than 30 minutes discharging and coordinating the patient's care. /[id number]/MODL
== END 2018-04-25 12:59 | disposition home or self-care (01) | DRG 194 ==
LOC: F3E 19:44 → OBSVTOIN 04-21 10:27
PROVIDERS: ADMIT Internal Medicine; ATTEND Family Medicine
DX: J10.00 Influenza due to other identified influenza virus with unspecified type of pneumonia (principal); J18.9 Pneumonia, unspecified organism; J44.0 Chronic obstructive pulmonary disease with (acute) lower respiratory infection; F32.9 Major depressive disorder, single episode, unspecified; E03.9 Hypothyroidism, unspecified; Z85.3 Personal history of malignant neoplasm of breast; Z87.891 Personal history of nicotine dependence; Z90.2 Acquired absence of lung [part of]
CPT/HCPCS: 84484-ER; 87449-90; 96365; 97161-GP; 97530-GP; G0378; J0456; J0696; J1650; J2405

== ENCOUNTER → 2018-04-20 | Outpatient (CLI) | payer OTHER, BC | LOC: BMCIMAGING 15:54 | PROVIDERS: ATTEND Family Medicine | DX: R06.02 Shortness of breath (principal); R91.8 Other nonspecific abnormal finding of lung field ==